=== PATIENT | female | born 1980 | race Hispanic/Latino ===

== ENCOUNTER → 2024-09-14 | Day surgery (SDC) | payer OTHER ==
[~2024-09-14] MED LIST: BENIFIBER PO; FAMOTIDINE40 MG PO; KLONOPIN1 MG PO; LACTATED RINGER'S 1,000 ML ONE; LAMOTRIGINE100 MG PO; LIDOCAINE HCL 2% LOCAL INJ 5 ML SDV VIAL INJ ONE; MIDAZOLAM HCL 2 MG/2 ML VIAL ONE; MIRALAX17 GM PO; MULTI-VITAMIN1 EACH PO; PROPOFOL IV EMULSION 50 ML IV ONE
[2024-09-14 07:17] VITALS: TEMP 97.1
[2024-09-14 07:40] VITALS: BP 118/76; PULSE 76; RESP 18; O2SAT 100
== END | disposition home or self-care (01) ==
LOC: OR 05:00
PROVIDERS: ATTEND Internal Medicine Gastroenterology
DX: K21.9 Gastro-esophageal reflux disease without esophagitis (principal); K29.70 Gastritis, unspecified, without bleeding; K59.00 Constipation, unspecified; K62.5 Hemorrhage of anus and rectum; K64.1 Second degree hemorrhoids; R63.4 Abnormal weight loss; F41.9 Anxiety disorder, unspecified; Z88.2 Allergy status to sulfonamides; Z79.899 Other long term (current) drug therapy
CPT/HCPCS: 43239; 45378; J2003; J2250; J2704; J7121